=== PATIENT | male | born 1970 | race Caucasian/White ===

== ENCOUNTER 2019-11-23 08:37 | Emergency (ER) | payer MEDICAID ==
[~2019-11-23] VITALS: Ht 172.7 cm; Wt 91.4 kg
[2019-11-23 08:42] VITALS: Ht 172.7 cm; Wt 91.4 kg
[2019-11-23] MEDS ORDERED: ALBUTEROL SULF8.5 GM INH (08:43)
[2019-11-23] MEDS ORDERED: HYDROCODON-ACE1 EAC7 PO (09:58)
[2019-11-23 11:04] VITALS: BP 158/89
== END 2019-11-23 11:06 | disposition home or self-care (01) ==
LOC: D.ER 08:37
DX: M79.674 Pain in right toe(s) (principal); J45.909 Unspecified asthma, uncomplicated